=== PATIENT | male | born 1960 | race Caucasian/White ===

== ENCOUNTER 2017-07-06 15:08 | Emergency (ER) | payer MEDICAID ==
[~2017-07-06] VITALS: Ht 175.3 cm; Wt 83.6 kg
[2017-07-06 15:17] VITALS: BP 175/123
== END 2017-07-06 15:40 | disposition home or self-care (01) ==
LOC: ED 15:08
DX: L72.3 Sebaceous cyst (principal); M54.5 Low back pain